=== PATIENT | female | born 1950 | race Asian ===

== ENCOUNTER 2020-04-27 08:31 | Day surgery (SDC) | payer MEDICARE, OTHER ==
[~2020-04-27 08:31] MED LIST: Lactated Ringers 1,000 ML IV SCH; Sodium Chloride 0.9% 10 ML Syringe FLUSH PRN
[2020-04-27] MEDS ORDERED: Lidocaine 2% 5 ML SDV IV ONE (08:32)
[2020-04-27] MEDS ORDERED: Propofol 200 MG/20 ML SDV IV ONE (08:32)
--- NOTE | 2020-04-27 09:50 | PCM.OPNOTE ---
- General Post-Op/Procedure Note Date of Surgery/Procedure: 04/27/20 Operative Procedure(s): egd with biopsy Findings: antral ulcer healing irregular z line Pre Op Diagnosis: hx of melena Post-Op Diagnosis: antral ulcer healing. irregular z line Anesthesia Technique: MAC Primary Surgeon: Marty Alvares Anesthesia Provider: Jorje Little Pathology: stomach and distal esophagus Complications: None Condition: Good Free Text/Narrative:: see dictation
--- NOTE | 2020-04-28 08:44 | OR ---
DATE OF OPERATION: 04/27/2020 SURGEON: Marty Alvares MD PROCEDURE PERFORMED: Esophagogastroduodenoscopy with cold forceps biopsy. PREOPERATIVE DIAGNOSIS: History of melena. POSTOPERATIVE DIAGNOSIS: Healing antral ulcer and irregular Z-line. INDICATIONS FOR PROCEDURE: This is a 69-year-old white female, who had some melenic stools. She was offered and accepted an EGD as part of a workup. DESCRIPTION OF PROCEDURE: After an excellent IV sedation was administered, bite block was inserted. Flexible endoscope was passed without difficulty down the patient's esophagus into the stomach. Stomach was insufflated. Scope passed through the pylorus to second portion of the duodenum and slowly withdrawn. Following findings were noted. Duodenum is unremarkable. Stomach, in the area of the antrum, there are what appear to be two ulcers that are healing. Biopsies were taken in the area. GE junction measured about 35 cm, which is appropriate for a lady of her height. She was noted to have an irregular Z- line, and several biopsies were taken in this area as well. The remainder of the esophageal exam was unremarkable. The patient tolerated the procedure well, was taken to recovery. We will be sending results via letter. /[id number] /MODL
== END 2020-04-27 10:52 | disposition home or self-care (01) ==
LOC: FB.SDS 08:31
PROVIDERS: ATTEND Surgery
DX: K29.50 Unspecified chronic gastritis without bleeding (principal); B96.81 Helicobacter pylori [H. pylori] as the cause of diseases classified elsewhere; K20.0 Eosinophilic esophagitis; E11.9 Type 2 diabetes mellitus without complications; E78.2 Mixed hyperlipidemia; I10 Essential (primary) hypertension; Z87.19 Personal history of other diseases of the digestive system; Z79.899 Other long term (current) drug therapy
CPT/HCPCS: 00731; 43239; 88305; 88313; 88342; J2001; J2704; J7120

== ENCOUNTER 2022-09-17 07:55 | Day surgery (SDC) | payer MEDICARE, OTHER ==
[2022-09-17] MEDS ORDERED: Propofol 200 MG/20 ML SDV IV ONE (07:56)
[2022-09-17] MEDS ORDERED: Glycopyrrolate 0.2 MG/ML 5 ML MDV IV ONE (07:56)
[2022-09-17] MEDS ORDERED: Sodium Chloride 0.9% 10 ML Syringe FLUSH PRN (08:15)
[2022-09-17] MEDS: Lactated Ringers 1,000 ML IV SCH (09:12)
== END 2022-09-17 10:40 | disposition home or self-care (01) ==
LOC: FB.SDS 07:55
PROVIDERS: ATTEND Surgery
DX: Z12.11 Encounter for screening for malignant neoplasm of colon (principal); K63.5 Polyp of colon; K57.30 Diverticulosis of large intestine without perforation or abscess without bleeding; I10 Essential (primary) hypertension; E11.9 Type 2 diabetes mellitus without complications; E78.49 Other hyperlipidemia; M19.90 Unspecified osteoarthritis, unspecified site; Z98.890 Other specified postprocedural states; Z79.899 Other long term (current) drug therapy; Z79.4 Long term (current) use of insulin; Z79.84 Long term (current) use of oral hypoglycemic drugs
CPT/HCPCS: 00812; 82947; 88305; J2704; J3490; J7120